=== PATIENT | female | born 1955 | race African-American/Black ===

== ENCOUNTER 2018-04-17 20:00 | Emergency (ER) | payer OTHER, SELFPAY ==
--- NOTE | 2018-04-17 20:56 | RAD REPORT ---
EXAM DESCRIPTION: RAD - Pelvis - 04/17/2018 8:39 pm CLINICAL HISTORY: Slip and fall, pelvic pain COMPARISON: March 2016 TECHNIQUE: AP imaging of the pelvis was obtained. FINDINGS: No fracture of the bony pelvis. No fracture or dislocation of either proximal femur. Degen erative change present at each hip joint slightly worse on the right. Pattern is not substantially di fferent from 2016. SI joints and sacral ala unremarkable. No suspicious soft tissue finding. IMPRESSION: No fracture or acute finding. Right greater than left bilateral hip joint degenerative change.
--- NOTE | 2018-04-17 20:56 | RAD REPORT ---
EXAM DESCRIPTION: RAD - Hip Right 2 View - 04/17/2018 8:39 pm CLINICAL HISTORY: Fall, hip pain COMPARISON: None. FINDINGS: AP and frog-leg views of the right hip were obtained. There is no fracture or dislocation . No acute or destructive bony process seen. Degenerative changes are present along the superior moisés tabular rim. Joint space narrowing is present. AVN is not suspected. IMPRESSION: Hip joint degenerative changes are present as detailed. No fracture or acute finding.
--- NOTE | 2018-04-17 22:00 | EDPHYS ---
Physician Documentation [facility] Name: Heath Lockwood Age: 62 yrs Sex: Female : 1955 Arrival Date: 04/17/2018 Time: 20:01 Bed 18 Private MD: Ilsa Saini ED Physician Oz Antony HPI: 04/17 21:45 This 62 yrs old Black Female presents to ER via Ambulatory with complaints of Fall pm1 Injury, Back Pain. 21:45 Patient is here with a friend who is being treated in the emergency department. Patient pm1 went to the restroom and slipped on the wet floor. Patient stood up with assistance and sat on wheelchair. Patient transferred to the room and was able to stand up and get in bed. Patient complaining of pain in her tailbone and right hip. Patient without any head injury, headache, neck pain, or LOC. No chest pain or shortness of breath. Historical: - Allergies: 20:22 Motrin; bb 20:22 tramadol; bb - Home Meds: 20:22 Trazodone Oral [Active]; [place] 10-325 mg Oral tab 1 tab every 6 hours [Active]; Nexium bb Oral [Active]; Lyrica Oral [Active]; Metoprolol Tartrate Oral [Active]; aspirin 81 mg Oral chew 1 tab once daily [Active]; - PMHx: 20:22 CVA; irregular heartbeat; Myocardial infarction; ovarian cancer; chronic back pain; bb - PSHx: 20:22 back surgery for herniated disc; Hysterectomy; ectopic ; bb - Immunization history:: Adult Immunizations up to date. - Social history:: Smoking status: Patient uses tobacco products, smokes one pack cigarettes per day. Patient uses alcohol, occasionally. Patient/guardian denies using street drugs. - Ebola Screening: : Patient negative for fever greater than or equal to 101.5 degrees Fahrenheit, and additional compatible Ebola Virus Disease symptoms. ROS: 21:45 Constitutional: Negative for fever, chills, and weight loss, Eyes: Negative for injury, pm1 pain, redness, and discharge, ENT: Negative for injury, pain, and discharge, Neck: Negative for injury, pain, and swelling, Cardiovascular: Negative for chest pain, palpitations, and edema, Respiratory: Negative for shortness of breath, cough, wheezing, and pleuritic chest pain, Abdomen/GI: Negative for abdominal pain, nausea, vomiting, diarrhea, and constipation. 21:45 : Negative for injury, bleeding, discharge, and swelling. 21:45 Skin: Negative for injury, rash, and discoloration, Neuro: Negative for headache, weakness, numbness, tingling, and seizure. 21:45 Back: Positive for of the sacrum, pain. 21:45 MS/extremity: Positive for pain, of the right hip, Negative for decreased range of motion, deformity. Exam: 21:45 Constitutional: This is a well developed, well nourished patient who is awake, alert, pm1 and in no acute distress. Head/Face: Normocephalic, atraumatic. Eyes: Pupils equal round and reactive to light, extra-ocular motions intact. Lids and lashes normal. Conjunctiva and sclera are non-icteric and not injected. Cornea within normal limits. Periorbital areas with no swelling, redness, or edema. ENT: Nares patent. No nasal discharge, no septal abnormalities noted. Tympanic membranes are normal and external auditory canals are clear. Oropharynx with no redness, swelling, or masses, exudates, or evidence of obstruction, uvula midline. Mucous membranes moist. Neck: Trachea midline, no thyromegaly or masses palpated, and no cervical lymphadenopathy. Supple, full range of motion without nuchal rigidity, or vertebral point tenderness. No Meningismus. Chest/axilla: Normal chest wall appearance and motion. Nontender with no deformity. No lesions are appreciated. Cardiovascular: Regular rate and rhythm with a normal S1 and S2. No gallops, murmurs, or rubs. Normal PMI, no JVD. No pulse deficits. Respiratory: Lungs have equal breath sounds bilaterally, clear to auscultation and percussion. No rales, rhonchi or wheezes noted. No increased work of breathing, no retractions or nasal flaring. Abdomen/GI: Soft, non-tender, with normal bowel sounds. No distension or tympany. No guarding or rebound. No evidence of tenderness throughout. 21:45 Skin: Warm, dry with normal turgor. Normal color with no rashes, no lesions, and no evidence of cellulitis. 21:45 Back: pain, of the sacrum, normal spinal alignment noted. 21:45 Musculoskeletal/extremity: Extremities: grossly normal except: noted in the right hip: tenderness, There is no evidence of decreased ROM, deformity. Vital Signs: 20:22 BP 123 / 77; Pulse 77; Resp 18 S; Temp 98.2(O); Pulse Ox 97% on R/A; Weight 108.86 kg bb (R); Height 5 ft. 7 in. (170.18 cm) (R); Pain 10/10; 22:00 BP 133 / 69; Pulse 81; Resp 17; Pulse Ox 97% ; rk2 20:22 Body Mass Index 37.59 (108.86 kg, 170.18 cm) bb MDM: 20:13 Patient medically screened. pm1 21:55 Data reviewed: vital signs. Data interpreted: Pulse oximetry: on room air is 97 %. pm1 Interpretation: normal. Counseling: I had a detailed discussion with the patient and/or guardian regarding: the historical points, exam findings, and any diagnostic results supporting the discharge/admit diagnosis, radiology results, the need for outpatient follow up, to return to the emergency department if symptoms worsen or persist or if there are any questions or concerns that arise at home. 22:00 ED course: patient takes [place] 10 mg QID. pm1 22:00 ED course: Patient requested IM narcotics for pain. No fracture on X-rays. Patient pm1 diagnosed with contusions. Will not give narcotics in the ER due to increased risk of falls. Patient with narcotic medications at home already. 04/17 20:17 Order name: Hip Right 2 View XRAY; Complete Time: 21:43 pm1 04/17 20:17 Order name: Pelvis XRAY; Complete Time: 21:43 pm1 Administered Medications: No medications were administered Disposition: 04/18 05:55 Co-signature as Attending Physician, Oz Antony MD I agree with the assessment and tw4 plan of care. Disposition: 04/17/18 22:00 Discharged to Home. Impression: Other slipping, tripping and stumbling and falls, Contusion of right hip. - Condition is Stable. - Discharge Instructions: Contusion, Fall Prevention and Home Safety. - Medication Reconciliation Form, Thank You Letter, Prescription Opioid Use form. - Follow up: Emergency Department; When: As needed; Reason: Worsening of condition. Follow up: Ilsa Saini MD; When: 2 - 3 days; Reason: Recheck today's complaints, Continuance of care, Re-evaluation by your physician. - Problem is new. - Symptoms have improved. Signatures: Dispatcher [employer] EDMS Nneka Ross, RN RN bb Rik Fish, LINEN AIDE LINEN AIDE pm1 Oz Antony MD MD tw4 Sabina Alejandra RN RN rk2 Corrections: (The following items were deleted from the chart) 04/17 22:31 22:00 04/17/2018 22:00 Discharged to Home. Impression: Other slipping, tripping and rk2 stumbling and falls; Contusion of right hip. Condition is Stable. Forms are Medication Reconciliation Form, Thank You Letter, Antibiotic Education, Prescription Opioid Use. Follow up: Emergency Department; When: As needed; Reason: Worsening of condition. Follow up: Ilsa Saini; When: 2 - 3 days; Reason: Recheck today's complaints, Continuance of care, Re-evaluation by your physician. Problem is new. Symptoms have improved. pm1
--- NOTE | 2018-04-17 22:00 | ER ---
Nurse's Notes [facility] Name: Heath Lockwood Age: 62 yrs Sex: Female : 1955 Arrival Date: 04/17/2018 Time: 20:01 Bed 18 Private MD: Ilsa Saini Diagnosis: Other slipping, tripping and stumbling and falls;Contusion of right hip Presentation: 04/17 20:19 Presenting complaint: Patient states: she was in ED with a friend and went to the bathroom then slipped landing on her butt denies LOC, denies hitting her head, was able to get up with assistance, pt was able to transfer on her own from wheelchair to stretcher. Transition of care: patient was not received from another setting of care. Onset of symptoms was April 17, 2018. Risk Assessment: Do you want to hurt yourself or someone else? Patient reports no desire to harm self or others. Initial Sepsis Screen: Does the patient meet any 2 criteria? No. Patient's initial sepsis screen is negative. Does the patient have a suspected source of infection? No. Patient's initial sepsis screen is negative. Care prior to arrival: None. 20:19 Method Of Arrival: Ambulatory 20:19 Acuity: SHEILA 4 Triage Assessment: 20:37 General: Appears uncomfortable. General: Behavior is calm, cooperative. Pain: Complains rk2 of pain in back. Neuro: Level of Consciousness is alert, obeys commands, Oriented to person, place, time, situation. Respiratory: Airway is patent Respiratory effort is even, unlabored, Respiratory pattern is regular, symmetrical. Derm: Skin is pink, warm \T\ dry. Historical: - Allergies: 20:22 Motrin; bb 20:22 tramadol; bb - Home Meds: 20:22 Trazodone Oral [Active]; [place] 10-325 mg Oral tab 1 tab every 6 hours [Active]; Nexium bb Oral [Active]; Lyrica Oral [Active]; Metoprolol Tartrate Oral [Active]; aspirin 81 mg Oral chew 1 tab once daily [Active]; - PMHx: 20:22 CVA; irregular heartbeat; Myocardial infarction; ovarian cancer; chronic back pain; bb - PSHx: 20:22 back surgery for herniated disc; Hysterectomy; ectopic ; bb - Immunization history:: Adult Immunizations up to date. - Social history:: Smoking status: Patient uses tobacco products, smokes one pack cigarettes per day. Patient uses alcohol, occasionally. Patient/guardian denies using street drugs. - Ebola Screening: : Patient negative for fever greater than or equal to 101.5 degrees Fahrenheit, and additional compatible Ebola Virus Disease symptoms. Screenin:37 Abuse screen: Denies threats or abuse. Nutritional screening: No deficits noted. rk2 Tuberculosis screening: No symptoms or risk factors identified. Fall Risk None identified. Assessment: 21:30 Reassessment: Patient appears in no apparent distress at this time. No changes from rk2 previously documented assessment. Patient and/or family updated on plan of care and expected duration. Pain level reassessed. Vital Signs: 20:22 BP 123 / 77; Pulse 77; Resp 18 S; Temp 98.2(O); Pulse Ox 97% on R/A; Weight 108.86 kg bb (R); Height 5 ft. 7 in. (170.18 cm) (R); Pain 10/10; 22:00 BP 133 / 69; Pulse 81; Resp 17; Pulse Ox 97% ; rk2 20:22 Body Mass Index 37.59 (108.86 kg, 170.18 cm) bb ED Course: 20:01 Patient arrived in ED. am2 20:02 Ilsa Saini MD is Private Physician. am2 20:10 Sandra Camacho, MONTSE is Primary Nurse. ea 20:10 Rik Fish NP is PHCP. pm1 20:10 Oz Antony MD is Attending Physician. pm1 20:20 Triage completed. bb 20:22 Arm band placed on Patient placed in an exam room, on a stretcher, on pulse oximetry. bb 20:36 Sabina Alejandra, MONTSE is Primary Nurse. rk2 20:36 Pelvis XRAY Sent. rk2 20:37 Patient has correct armband on for positive identification. Bed in low position. Call rk2 light in reach. 20:37 Hip Right 2 View XRAY Sent. rk2 20:38 Hip Right 2 View XRAY In Process Unspecified. EDMS 20:38 Pelvis XRAY In Process Unspecified. EDMS 21:59 Ilsa Saini MD is Referral Physician. pm1 22:30 No provider procedures requiring assistance completed. Patient did not have IV access rk2 during this emergency room visit. Administered Medications: No medications were administered Outcome: 22:00 Discharge ordered by . pm1 22:31 Discharged to home ambulatory, was offered a wheelchair, pt. declined rk2 22:31 Condition: good 22:31 Discharge instructions given to patient. 22:31 Patient left the ED. rk2 Signatures: Dispatcher [employer] EDMS Nneka Ross RN RN Rik Peters NP [employer] pm1 Zakia Aparicio am2 Sandra Camacho RN RN ea Kidder, Rhonda, RN RN rk2
[2018-04-17 22:37] VITALS: BP 123/77; TEMP 98.2; O2SAT 97
== END 2018-04-17 22:31 | disposition home or self-care (01) ==
LOC: ER 20:00
DX: S70.01XA Contusion of right hip, initial encounter (principal); Z86.73 Personal history of transient ischemic attack (TIA), and cerebral infarction without residual deficits; I25.2 Old myocardial infarction; Z88.6 Allergy status to analgesic agent; Z88.8 Allergy status to other drugs, medicaments and biological substances; F17.210 Nicotine dependence, cigarettes, uncomplicated; W01.198A Fall on same level from slipping, tripping and stumbling with subsequent striking against other object, initial encounter; Y93.89 Activity, other specified; Y92.231 Patient bathroom in hospital as the place of occurrence of the external cause; Y99.9 Unspecified external cause status
CPT/HCPCS: 72170; 99283

== ENCOUNTER 2018-08-25 19:17 | Emergency (ER) | payer SELFPAY ==
--- OUTSIDE RECORDS SUMMARY | 2018-08-25 19:19 | XMS REPORT ---
:1955 Author Organization eClinicalWorks Care Team Providers Name Role Phone Manjitnorbert Ilsa Provider Role Unavailable Allergies, Adverse Reactions, Alerts Substance Reaction Event Type Tramadol HCl Info Not Available Drug Allergy Ibuprofen swelling with her breathing affected Drug Allergy Problems Problem Type Condition Code Onset Dates Condition Status Problem Depression with anxiety F41.8 Active Problem IBS (irritable bowel syndrome) K58.9 Active Problem Edema R60.9 Active Problem Gastroesophageal reflux disease, K21.9 Active esophagitis presence not specified Problem Status post fall Z91.81 Active Problem Chronic pain syndrome G89.4 Active Problem Coronary artery disease involving I25.709 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 Problem Polyarthralgia M25.50 Active Problem Right leg weakness R29.898 Active Problem Insomnia, unspecified type G47.00 Active Assessment Right leg weakness R29.898 Active Assessment Chronic pain syndrome G89.4 Active Assessment Insomnia, unspecified type G47.00 Active Assessment Status post fall Z.81 Active Assessment Coronary artery disease involving I25.709 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 Assessment Polyarthralgia M25.50 Active Problem Cancer C80.1 Active Assessment Gastroesophageal reflux disease, K21.9 Active esophagitis presence not specified Problem Heart disease I51.9 Active Medications Medication Code Code Instructions Start End Status Dosage System Date Date Bactroban [facility] 62472390006 2 % Externally Active 1 application Three times a to affected day x10 days area Nexium ND 06089243058 40 MG Orally Active 1 capsule Once a day Omeprazole ND 32599269545 20 mg Orally Active 1 capsule Once a day amitriptyline ND 14810921958 25 mg po Active one tab bedtime Lyrica ND 56081044496 150 MG Orally Active 1 capsule Three times a day Trazodone HCl ND 87340920787 100 mg Orally Active 1-2 tablets Once a day at bedtime as needed for sleep Aspir-Low ND 82113802347 81 MG Orally Active 1 tablet Once a day Metoprolol [facility] 94836774831 25 mg Orally Active 1 tablet Succinate ER Once a day BusPIRone HCl [facility] 43014860734 7.5 MG Orally Active 1 tablet Twice a day as needed Results No Known Results Summary Purpose eClinicalWorks Submission
[2018-08-25] MEDS ORDERED: NA CHLORIDE 0.9% 500 ML ONE (21:33)
[2018-08-25 22:10] LABS: Absolute Lymphocytes (CBC) 2.5 K/uL (0.7-4.9); Absolute Monocytes 0.7 K/uL (0.1-1.3); Absolute Neutrophil 2.1 K/uL (1.8-8.0); Basophils % 0.9 % (0-1.3); Eosinophils % 3.6 % (0-4.4); Hematocrit 35.9 % (36.0-45.0); MCH 30.4 pg (27.0-35.0); MPV 10.5 fL (7.6-11.3); Monocytes % 12.7 % (3.3-12.3); RBC Red Blood Cell Count 4.08 M/uL (3.86-4.86)
[2018-08-25 22:11] LABS: Protime INR 0.95
[2018-08-25 22:22] LABS: ALT/SGPT 17 U/L (12-78); AST/SGOT 11 U/L (15-37); Albumin 3.1 g/dL (3.4-5.0); Alkaline Phosphatase 80 U/L (45-117); BUN Blood Urea Nitrogen 11 mg/dL (7-18); Bicarbonate 29 mmol/L (21-32); Bilirubin Direct 0.1 mg/dL (0-0.2); Bilirubin Total 0.2 mg/dL (0.2-1.0); Glucose Level 120 mg/dL (74-106); Lipase 285 U/L (73-393); Magnesium 2.3 mg/dL (1.8-2.4); Potassium 3.8 mmol/L (3.5-5.1); Protein, Total 6.1 g/dL (6.4-8.2); Sodium Level 144 mmol/L (136-145); Troponin (Emerg Dept Use Only) < 0.02 ng/mL (0.0-0.045)
[2018-08-25] MEDS ORDERED: FENTANYL CITR 100 MCG/2 ML ONE (22:22)
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
[2018-08-26 01:23] VITALS: TEMP 98.9
[2018-08-26 01:27] VITALS: BP 132/64; O2SAT 100
[2018-08-26 01:55] LABS: Urine Blood TRACE (NEG); Urine Glucose NEGATIVE (NEG); Urine Protein NEGATIVE (NEG)
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
--- NOTE | 2018-08-26 07:34 | EKG ---
Test Date: 2018-08-25 Test Time: 23:02:27 Grant Specialist: TL MEASUREMENT RESULTS: Intervals: Rate: 62 CT: 188 QRSD: 78 QT: 388 QTc: 393 [place]: P: 69 CT: 188 QRS: 30 T: 62 INTERPRETIVE STATEMENTS: Normal sinus rhythm Normal ECG Compared to ECG 09/03/2016 15:36:10 No significant changes Electronically Signed On 08-26-18 07:33:15 CDT by Jose E Navarro
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
== END 2018-08-26 01:16 | disposition home or self-care (01) ==
LOC: ER 19:17
DX: S16.1XXA Strain of muscle, fascia and tendon at neck level, initial encounter (principal); R10.819 Abdominal tenderness, unspecified site; V49.9XXA Car occupant (driver) (passenger) injured in unspecified traffic accident, initial encounter; F17.210 Nicotine dependence, cigarettes, uncomplicated; Z79.82 Long term (current) use of aspirin; I25.2 Old myocardial infarction; Z85.43 Personal history of malignant neoplasm of ovary; Z88.5 Allergy status to narcotic agent; Z88.6 Allergy status to analgesic agent
CPT/HCPCS: 36415; 70450; 71045; 71260; 72125; 74177; 80048; 80076; 81003; 83690; 83735; 83880; 84484; 85025; 85610; 87086; 87088; 93005; 96361; 96374; 99284; J3010; Q9967

== ENCOUNTER 2020-07-31 17:27 | Emergency (ER) | payer SELFPAY ==
--- OUTSIDE RECORDS SUMMARY | 2020-07-31 17:29 | XMS REPORT | Continuity of Care Document ---
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) l [facility] ent [facility] Edema Edema Problem Active [facility] Gastroesop Gastroesop Problem Active [facility] hageal hageal [facility] - reflux reflux Memoria disease, disease, l esophagiti esophagiti Ou tpati s presence s presence en t not not Clinics specified specified Status Status Problem Active [facility] post fall post fall [facility] - [facility] Chronic Chronic Problem Active [facility] pain pain [facility] - syndrome syndrome Memori a l [facility] Coronary Coronary Diagnosis Active [facility] artery artery [facility] - disease disease Memoria involving involving l coronary coronary Outpat i bypass bypass ent graft of graft of [facility] [place] with heart with angina angina pectoris pectoris Polyarthra Polyarthra Problem Active [facility] lgia lgia [facility] Right leg Right leg Problem Active [facility] weakness weakness [facility] Insomnia, Insomnia, Diagnosis Active [facility] unspecifie unspecifie Mikaela kes - d type d type Memoria [facility] Clinics Cancer Cancer Problem Active [facility] Heart Heart Problem Active [facility] disease disease [facility] Allergies, Adverse Reactions, Alerts Allergy Allergy Status Severity Reaction(s) Onset Inactive Treating Comm ents Source Name Type Date Date Clinician Tramadol Adverse Active Info Not [facility] HCl Reaction Available [facility] Ibuprofe Adverse Active swelling [facility] Reaction with her [facility] - breathing [facility]oria affected l [facility] Medications Ordered Filled Start Stop Current Ordering Indication Dosage Frequency Signature Comments Components Source Medication Medication Date Date Medication? Clinician (SIG) Name Name Trazodone Trazodone Yes Ilsa 1-[address] [facility] HCl HCl Millender tablets at [facility] - bedtime as [facility]oria needed for l sleep [facility] Metoprolol Metoprolol Yes Ilsa [address] [facility] Succinate Succinate Millender [facility] - ER ER [facility] l [facility] Procedures This patient has no known procedures. Encounters Start End Encounter Admission Attending Care Care Encounter Source Date/Time Date/Time Type Type Clinicians Facility Department ID 2020-02-03 2020-02-03 [facility] [id number] [facility] 08:59:00 08:59:00 [facility] 2019-07-28 2019-07-28 [facility] [id number] [facility] 13:00:00 13:00:00 [facility] Medicine Outpati ent Clinics 2019-06-16 2019-06-16 [facility] [id number] [facility] 16:59:00 16:59:00 [facility] 2019-06-10 2019-06-10 [facility] [id number] [facility] 11:50:00 11:50:00 [facility] Medicine Outpati ent Clinics 2018-05-09 2018-05-09 [facility] [id number] [facility] 09:00:00 09:00:00 [facility] Results This patient has no known results.
[2020-07-31] MEDS ORDERED: HYDROCODONE/APAP 10/325 TAB ONE (18:20)
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
[2020-07-31 19:59] VITALS: BP 118/68; O2SAT 99
== END 2020-07-31 19:53 | disposition home or self-care (01) ==
LOC: ER 17:27
DX: R07.81 Pleurodynia (principal); M25.551 Pain in right hip; V49.59XA Passenger injured in collision with other motor vehicles in traffic accident, initial encounter; F17.210 Nicotine dependence, cigarettes, uncomplicated; Z79.82 Long term (current) use of aspirin; Z85.42 Personal history of malignant neoplasm of other parts of uterus; Z88.5 Allergy status to narcotic agent; Z88.6 Allergy status to analgesic agent
CPT/HCPCS: 70450; 71250; 72125; 99284

== ENCOUNTER 2024-02-18 04:26 | Emergency (ER) | payer OTHER, SELFPAY ==
--- OUTSIDE RECORDS SUMMARY | 2024-02-18 04:30 | XMS REPORT | Continuity of Care Document ---
Author Name Unknown Address [address] [facility]. [address] [place] [address] [facility] thconnect Address [address] [facility] [address]. [address] [place] [address] Care Team Providers Care Crm Marketing Executive Name Role Phone Aracelis Mark Attending Clinician Unavailable Sariah Cody Attending Clinician Unavailable Erica Zeng Attending Clinician Unavailable CHARLIE MCKEON Attending Clinician Unavailable THEODORE GUTIERREZ Attending Clinician Unav ailable LAB90 Attending Clinician Unavailable NORRIS MELENDREZ Attending Clinician Unavail able MARI HERNANDEZ Attending Clinician Unavailable DARVIN Attending Clinician Unavailable Payers Payer Name Policy Type Policy Number Effective Date Expirati on Date Source [place] [facility] [id number] 00:00:00 FORMERLY [facility] (MEDICARE REPLACEMENT HMO) [id number] 00:00:00 Problems Condition Name Condition Details Condition Category Status Onset Date Resolution Date Last Treatment Date Treating Clinician Comments Source Prediabete s Prediabete s Disease Active 2022-11 0- 00:00: 00 Kathy massey Well adult exam Well adult exam Disease Active 08-15 00:00: 00 Kathy massey History of uterine cancer History of uterine cancer Disease Active 08-15 00:00: 00 Kathy massey Chronic back pain Chronic back pain Disease Active 08-15 00:00: 00 Kathy massey GERD (gastroeso phageal reflux disease) GERD (gastroeso phageal reflux disease) Disease Active 08-15 00:00: 00 Kathy massey History of colon polyps History of colon polyps Disease Active 08-15 00:00: 00 Kathy Thompsona l Family history of colon cancer in father Family history of colon cancer in father Disease Active 08-15 00:00: 00 Kathy Thompsona bryson HTN (hypertens ion) HTN (hypertens ion) Disease Active 08-15 00:00: 00 Kathy Thompsona bryson Tobacco use Tobacco use Disease Active 08-15 00:00: 00 Kathy Thompsona bryson CAD (coronary artery disease) CAD (coronary artery disease) Disease Active 08-15 00:00: 00 Overview: Formattin g of this note might be different from the original. 2006 Kathy massey History of WA (myocardia l infarction ) History of WA (myocardia l infarction ) Disease Active 11-18 00:00: 00 Kathy massey History of CVA (cerebrova scular accident) History of CVA (cerebrova scular accident) Disease Active 11-18 00:00: 00 Kathy Thompsona bryson Edema Edema Problem Active [facility] Irritable bowel syndrome IBS (irritable bowel syndrome) Problem Active [facility] [id number] Polyarthra lgia Problem Active [facility] Cancer Cancer Problem Active [facility] Mixed anxiety and depressive disorder Depression with anxiety Problem Active [facility] [id number] Chronic pain syndrome Problem Active [facility] Heart disease Heart disease Problem Active [facility] [id number] Coronary artery disease involving coronary bypass graft of [place] heart with angina pectoris Problem Active [facility] [id number] Insomnia, unspecifie d type Problem Active [facility] [id number] Right leg weakness Problem Active [facility] [id number] Status post fall Problem Active [facility] Allergies, Adverse Reactions, Alerts Allergy Name Allergy Type Status Severity Reaction(s) Onset Date Inactive Date Treating Clinician Comments Source Ibuprofe n Propensi ty to adverse reaction s Active Swelling 07-18 00:00: 00 Kathy De La Torre - Externa l Tramadol Propensi ty to adverse reaction s Active Other 07-18 00:00: 00 Kathy La Externa l ibuprofe n ibuprofe n Active swelling with her breathing affected [facility] tramadol tramadol Active Unknown Commo n [facility] Social History Social Habit Start Date Stop Date Quantity Comments Source History of tobacco use Cigarette Smoker Kathy drake - External Sexual orientation Marilin De La Torre - External Alcohol intake 2023-09-17 00:00:00 2023-09-17 00:00:00 Current drinker of alcohol (finding) Kathy De La Torre - External Cigarettes smoked current (pack per day) - Reported 2023-08-15 00:00:00 2023-08-15 00:00:00 Kathy De La Torre - External Cigarette pack-years 2023-08-15 00:00:00 2023-08-15 00:00:00 Kathy De La Torre - External Tobacco use and exposure 2023-08-15 00:00:00 2023-08-15 00:00:00 Smokeless tobacco non-user Kathy De La Torre - External History of Social function 2023-08-15 00:00:00 2023-08-15 00:00:00 Kathy De La Torre - External Education 2023-08-15 00:00:00 2023-08-15 00:00:00 13 Kathy De La Torre - External Alcohol Comment 2023-08-15 00:00:00 2023-08-15 00:00:00 moderately Kathy De La Torre - External Sex Assigned At 1955 00:00:00 1955 00:00:00 Kathy De La Torre - External Smoking Status Start Date Stop Date Source Smokes tobacco daily 2023-08-15 00:00:00 Kathy De La Torre - External Medications Ordered Medication Name Filled Medication Name Start Date Stop Date Current Medication? Ordering Clinician Indication Dosage Frequency Signature (SIG) Comments Components Source MILK THISTLE OR 2022-11 10:22: 01 Yes Take by mouth. Kathy massey Ascorbic Acid (VITAMIN C OR) 2022-11 10:22: 01 Yes Take by mouth. Kathy massey Cyanocobala min (VITAMIN B 12 OR) 2022-11 10:22: 01 Yes Take by mouth. Kathy massey Aspirin 81 MG oral Tablet Delayed Response 2022-11 10:22: 01 Yes 81mg Take 1 tablet (81 mg total) by mouth daily. Kathy massey Atorvastati n Calcium (Lipitor) 10 MG oral Tablet 2022-11 00:00: 00 Yes [id number] 10mg Take 1 tablet (10 mg total) by mouth nightly. Kathy massey Metoprolol Succinate 25 MG oral TABLET SR 24 HR 08-15 10:33: 18 08-15 00:00 :00 No 25mg Take 1 tablet (25 mg total) by mouth daily. Kathy massey Trazodone HCl 100 MG oral Tablet 08-15 10:33: 18 08-15 00:00 :00 No 100mg Take 1 tablet (100 mg total) by mouth nightly. Kathy massey MILK THISTLE OR 08-15 10:00: 38 Yes Take by mouth. Kathy massey Ascorbic Acid (VITAMIN C OR) 08-15 10:00: 38 Yes Take by mouth. Kathy massey Cyanocobala min (VITAMIN B 12 OR) 08-15 10:00: 38 Yes Take by mouth. Kathy massey Aspirin 81 MG oral Tablet Delayed Response 08-15 10:00: 38 Yes 81mg Take 1 tablet (81 mg total) by mouth daily. Kathy massey Trazodone HCl 100 MG oral Tablet 08-15 00:00: 00 Yes [id number] 100mg Take 1 tablet (100 mg total) by mouth nightly. Kathy Mongeriaznoelle La Jaymargarita massey Metoprolol Succinate 25 MG oral TABLET SR 24 HR 08-15 00:00: 00 Yes [id number] 25mg Take 1 tablet (25 mg total) by mouth daily. Kathy Mongeamanda Bessie Sulaiman bryson Trazodone HCl 100 MG oral Tablet 08-15 00:00: 00 Yes [id number] 100mg Take 1 tablet (100 mg total) by mouth nightly. Kathy Mongeamanda Bessie Jaymargarita massey Metoprolol Succinate 25 MG oral TABLET SR 24 HR 08-15 00:00: 00 Yes [id number] 25mg Take 1 tablet (25 mg total) by mouth daily. Kathy Mongeriaznoelle La Sulaiman bryson Gabapentin 300 MG Gabapentin 300 MG 07-28 00:00: 00 No 1{capsu le} Gabapentin 300 MG Gabapentin 300 MG Gabapentin 300 MG 07-28 00:00: 00 No 1{capsu le} Gabapentin 300 MG Trazodone HCl Trazodone HCl Yes Ilsa Millender 1-2 tablets at bedtime as needed for sleep [facility] Metoprolol Succinate ER Metoprolol Succinate ER Yes Ilsa Millender 1 tablet [facility] Lyrica 150 MG Lyrica 150 MG No 1{capsu le} TID Lyrica 150 MG BusPIRone HCl 7.5 MG BusPIRone HCl 7.5 MG No 1{table t} BusPIRone HCl 7.5 MG Bactroban 2 % Bactroban 2 % No 1{appli cation_ to_affe cted_ar ea} Bactroban 2 % Metoprolol Succinate ER 25 mg Metoprolol Succinate ER 25 mg No 1{table t} QD Metoprolol Succinate ER 25 mg Aspir-Low 81 MG Aspir-Low 81 MG No 1{table t} QD Aspir-Low 81 MG Trazodone HCl 100 mg Trazodone HCl 100 mg No QD Trazodone HCl 100 mg Nexium 40 MG Nexium 40 MG No 1{capsu le} QD Nexium 40 MG Omeprazole 20 mg Omeprazole 20 mg No 1{capsu le} QD Omeprazole 20 mg amitriptyli ne 25 mg amitriptyli ne 25 mg No amitriptyl ine 25 mg BusPIRone HCl 7.5 MG BusPIRone HCl 7.5 MG No 1{table t} BusPIRone HCl 7.5 MG Trazodone HCl 100 mg Trazodone HCl 100 mg No QD Trazodone HCl 100 mg amitriptyli ne 25 mg amitriptyli ne 25 mg No amitriptyl ine 25 mg Bactroban 2 % Bactroban 2 % No 1{appli cation_ to_affe cted_ar ea} Bactroban 2 % Lyrica 150 MG Lyrica 150 MG No 1{capsu le} TID Lyrica 150 MG Metoprolol Succinate ER 25 mg Metoprolol Succinate ER 25 mg No 1{table t} QD Metoprolol Succinate ER 25 mg Nexium 40 MG Nexium 40 MG No 1{capsu le} QD Nexium 40 MG Omeprazole 20 mg Omeprazole 20 mg No 1{capsu le} QD Omeprazole 20 mg Aspir-Low 81 MG Aspir-Low 81 MG No 1{table t} QD Aspir-Low 81 MG Vital Signs Vital Name Observation Time Observation Value Comments S ource Systolic blood pressure 2023-09-17 15:20:00 129 mm[Hg] Kathymigdalia Goddardo ld - External Diastolic blood pressure 2023-09-17 15:20:00 67 mm[Hg] Kathymigdalia Goddardo ld - External Heart rate 2023-09-17 15:20:00 89 /min Kel y ybold - External Body temperature 2023-09-17 15:20:00 36.56 Robyn Kathy De La Torre - External Respiratory rate 2023-09-17 15:20:00 15 /min Kathy De La Torre - External Body height 2023-09-17 15:20:00 170.2 cm Melissa ey Seybold - External Body weight 2023-09-17 15:20:00 81.375 kg Melissa ey ybold - External BMI 2023-09-17 15:20:00 28.10 kg/m2 Melissa white amanda - External Oxygen saturation in Arterial blood by Pulse oximetry 2023-09-17 15:20:00 99 /min Kathy lyn ld - External Systolic blood pressure 2023-08-15 14:56:00 131 mm[Hg] Kathy alvarado - External Diastolic blood pressure 2023-08-15 14:56:00 77 mm[Hg] Kathy alvarado - External Heart rate 2023-08-15 14:56:00 95 /min Kenyon De La Torre - External Body temperature 2023-08-15 14:56:00 37.06 Robyn Kathy De La Torre - External Respiratory rate 2023-08-15 14:56:00 20 /min Kathy De La Torre - External Body weight 2023-08-15 14:56:00 83.553 kg Melissa De La Torre - External Oxygen saturation in Arterial blood by Pulse oximetry 2023-08-15 14:56:00 99 /min Kathy Goddardjoalnta christiano - External Encounters Start Date/Time End Date/Time Encounter Type Admission Type Attending [facility] Care Department Encounter ID Source 2022-11-23 12:45:00 Outpatient Aracelis Mark STLC STLC [id number] [facility] 2022-11-06 16:26:00 Outpatient STLMLC STLC [id number] [facility] 2021-12-13 14:30:22 Outpatient STLMLC STLMLC [id number] [facility] 2021-12-13 14:06:26 Outpatient Aracelis Mark STLMLC STLC [id number] [facility] 2021-12-13 14:06:22 Outpatient Sariah Cody STLMLC STLMLC [id number] [facility] 2021-12-13 12:22:41 Outpatient [place] RidgeSariah xiao STLC STLMLC [id number] [facility] 2021-12-13 12:04:11 Outpatient Karri Erica STLC STLC [id number] [facility] 2021-12-13 12:02:19 Outpatient Erica Zeng STLC STLC [id number] [facility] 2024-02-19 10:00:00 2024-02-19 10:00:00 Outpatient PREZAS, CHARLIE KATHY MEANS [id number] Kathy Mongenoelle 2024-02-12 00:00:00 2024-02-12 00:00:00 Outpatient PREZAS, CHARLIE KATHY MEANS [id number] Kathy Mongenoelle 2023-12-18 10:45:00 2023-12-18 10:45:00 Outpatient PREZAS, CHARLIE KATHY MEANS [id number] [facility] 2023-11-19 09:40:00 2023-11-19 09:40:00 Outpatient MATTTHEODORE KATHY MEANS [id number] Kathy [facility] 2023-11-19 00:00:00 2023-11-19 00:00:00 Outpatient MATT, THEODORE MEANS [id number] Kathy [facility] 2023-10-15 00:00:00 2023-10-15 00:00:00 Outpatient PREZAS, CHARLIE KATHY MEANS [id number] Kathy [facility] 2023-09-17 10:00:00 2023-09-17 10:00:00 Outpatient PREZAS, CHARLIE KATHY MEANS [id number] Kathy [facility] 2023-09-13 00:00:00 2023-09-13 00:00:00 Outpatient PREZAS, CHARLIEMAUREEN MEANS [id number] Kathy [facility] 2023-09-11 10:30:00 2023-09-11 10:30:00 Outpatient PREZAS, CHARLIE KATHY MEANS [id number] Kathy [facility] 2023-09-03 00:00:00 2023-09-03 00:00:00 Outpatient PREZAS, CHARLIE MEANS [id number] Kathy [facility] 2023-09-03 00:00:00 2023-09-03 00:00:00 Outpatient PREZAS, CHARLIE MEANS [id number] [facility] 2023-09-02 08:00:00 2023-09-02 08:00:00 Outpatient LAB90 [facility] MEANS [id number] [facility]23-08-26 00:00:00 2023-08-26 00:00:00 Outpatient NORRIS MELENDREZ KATHY MEANS [id number] [facility] 2023-08-25 00:00:00 2023-08-25 00:00:00 Outpatient PREZACHARLIE Easley KATHY MEANS [id number] [facility] 2023-08-22 00:00:00 2023-08-22 00:00:00 Outpatient MARI HERNANDEZ KATHY MEANS [id number] [facility] 2023-08-16 00:00:00 2023-08-16 00:00:00 Outpatient GIOZIEL KATHY MEANS [id number] [facility] 2023-08-15 10:15:00 2023-08-15 10:15:00 Outpatient PREZACHARLIE Easley KATHY MEANS [id number] [facility] 2023-07-17 10:30:00 2023-07-17 10:30:00 Outpatient PREZAS, CHARLIE KATHY MEANS [id number] [facility] 2023-07-05 00:00:00 2023-07-05 00:00:00 Outpatient PREZAS, CHARLIE KATHY MEANS [id number] [facility] 2023-07-01 00:00:00 2023-07-01 00:00:00 Outpatient PREZASCHARLIE KATHY MEANS [id number] [facility] 2023-05-30 10:00:00 2023-05-30 10:00:00 Outpatient PREZASCHARLIE KATHY MEANS [id number] [facility] 2022-10-24 00:00:00 2022-10-24 00:00:00 Outpatient DMG DMG [id number] [facility] 2020-12-06 00:00:00 2020-12-06 [id number] 2020-08-30 00:00:00 2020-08-30 00:00:00 [facility] [id number] [facility] 2020-02-03 08:59:00 2020-02-03 08:59:00 [facility] [id number] [facility] 2019-07-28 13:00:00 2019-07-28 13:00:00 [facility] [id number] [facility] 2019-06-16 16:59:00 2019-06-16 16:59:00 [facility] [id number] [facility] 2019-06-10 11:50:00 2019-06-10 11:50:00 [facility] [id number] [facility] 2018-05-09 09:00:00 2018-05-09 09:00:00 [facility] [id number] [facility]
[2024-02-18] MEDS ORDERED: ONDANSETRON 4 MG/2 ML VIAL ONE (04:49)
[2024-02-18] MEDS ORDERED: KETOROLAC 30 MG/ML INJ ONE (04:49)
[2024-02-18] MEDS ORDERED: HALOPERIDOL LACT 5 MG/ML INJ ONE (04:49)
[2024-02-18] MEDS ORDERED: FAMOTIDINE 20 MG/2 ML VIAL IV ONE (04:50)
[2024-02-18] MEDS ORDERED: MORPHINE 4 MG/ML SYR ONE (04:50)
[2024-02-18] MEDS ORDERED: NA CHLORIDE 0.9% 1,000 ML ONE (04:50)
[2024-02-18 05:17] LABS: Albumin 3.4 g/dL (3.4-5.0); Albumin/Globulin Ratio 1.1 (1.1-1.8); Anion Gap 6.7 mEq/L (5.0-15.0); Bilirubin Total 0.4 mg/dL (0.2-1.0); C-Reactive Protein 2.93 mg/L (<3.00); Globulin 3.2 g/dL (2.3-3.5); Potassium 3.7 mEq/L (3.5-5.1); Protein, Total 6.6 g/dL (6.4-8.2)
[2024-02-18 05:18] LABS: Absolute Basophils 0.1 K/uL (0-0.5); Absolute Eosinophils 0.1 K/uL (0-0.5); Absolute Lymphocytes (CBC) 3.2 K/uL (0.7-4.9); Absolute Monocytes 0.6 K/uL (0.1-1.3); Absolute Neutrophil 3.3 K/uL (1.8-8.0); Basophils % 0.9 % (0-1.3); Eosinophils % 2.1 % (0-4.4); Hematocrit 37.1 % (36.0-45.0); Hemoglobin 12.6 g/dL (12.0-15.0); MCH 30.3 pg (27.0-35.0); MCHC 34.1 g/dL (32.0-36.0); MPV 10.1 fL (7.6-11.3); Monocytes % 7.7 % (3.3-12.3); Neutrophils % 45.3 % (41.7-73.7); Nucleated Red Blood Cells % 0.1 % (0-0); Platelets 207 thou/uL (152-406); RBC Red Blood Cell Count 4.17 M/uL (3.86-4.86); Red Cell Distribution Width 13.5 % (12.1-15.2)
--- NOTE | 2024-02-18 07:02 | RAD REPORT ---
EXAM DESCRIPTION: CTAbdomen Pelvis W Contrast - 02/18/2024 5:56 am CLINICAL HISTORY: ABD PAIN COMPARISON: Head C Spine Cap W Con dated 08/25/2018 TECHNIQUE: CT of the abdomen and pelvis was performed with IV contrast. All CT scans are performed using dose optimization technique as appropriate and may include automated exposure control or mA/KV adjustment according to patient size. FINDINGS: Lower chest: No acute abnormality. Liver: Low-density lesion in the hepatic dome has benign imaging features and is unchanged since 2018 . . Biliary: No biliary ductal dilatation. Stomach: No significant focal abnormality. Duodenum: No significant focal abnormality. Pancreas: No significant abnormality. Spleen: No significant abnormality. Adrenal: No suspicious lesions. Kidney/ureter: No hydronephrosis. No renal calculi. Retroperitoneum: No retroperitoneal adenopathy. Vascular: No aneurysm. Bowel: Diverticulosis without diverticulitis. Normal appendix. Peritoneum: No ascites or free air.Small fat containing umbilical hernia. Bladder: Grossly unremarkable. Reproductive: No adnexal masses. Bones: No acute fracture. Moderate degenerative changes are present at the right hip. Other: n/a IMPRESSION: No acute intra-abdominal or pelvic finding.
--- NOTE | 2024-02-18 07:10 | ER ---
Nurse's Notes [facility] Name: Heath Lockwood Age: 68 yrs Sex: Female : 1955 Arrival Date: 02/18/2024 Time: 04:26 Bed 6 Private MD: Diagnosis: Flank Pain Presentation: 02/17 04:32 Chief complaint: Patient states: right upper abdominal pain X1 day. denies N/V/D. lg3 Coronavirus screen: Client denies travel out of the [place] in the last 14 days. At this time, the client does not indicate any symptoms associated with coronavirus-19. Ebola Screen: No symptoms or risks identified at this time. Initial Sepsis Screen: Does the patient meet any 2 criteria? No. Patient's initial sepsis screen is negative. Does the patient have a suspected source of infection? No. Patient's initial sepsis screen is negative. Risk Assessment: Do you want to hurt yourself or someone else? Patient reports no desire to harm self or others. Onset of symptoms was February 17, 2024. 04:32 Method Of Arrival: EMS: [facility] lg3 04:32 Acuity: SHEILA 3 lg3 Triage Assessment: 04:35 General: Appears in no apparent distress. uncomfortable, Behavior is calm, cooperative. lg3 Pain: Complains of pain in right upper quadrant Pain does not radiate. EENT: No deficits noted. No signs and/or symptoms were reported regarding the EENT system. Neuro: No deficits noted. Nelson Agitation-Sedation Scale (RASS): 0 - Alert and Calm Level of Consciousness is awake, alert, obeys commands, Oriented to person, place, time, situation. Cardiovascular: No deficits noted. Denies chest pain, shortness of breath, Capillary refill < 3 seconds Clubbing of nail beds is absent JVD is absent Patient's skin is warm and dry. Respiratory: No deficits noted. Airway is patent Respiratory effort is even, unlabored, Respiratory pattern is regular, symmetrical. GI: Abdomen is round non-distended, obese, Reports upper abdominal pain, Patient currently denies constipation, diarrhea, nausea. : No deficits noted. No signs and/or symptoms were reported regarding the genitourinary system. Derm: No deficits noted. No signs and/or symptoms reported regarding the dermatologic system. Skin is intact, is healthy with good turgor, Skin is dry, Skin is normal, Skin temperature is warm. Musculoskeletal: No deficits noted. No signs and/or symptoms reported regarding the musculoskeletal system. Circulation, motion, and sensation intact. Range of motion: intact in all extremities. Historical: - Allergies: 04:35 Motrin; lg3 04:35 tramadol; lg3 04:35 Ibuprofen; lg3 - PMHx: 04:35 chronic back pain; CVA; irregular heartbeat; Myocardial infarction; ovarian cancer; lg3 uterine cancer; - PSHx: 04:35 Total abdominal hysterectomy; lg3 - Immunization history:: Adult Immunizations up to date, Client reports receiving the 2nd dose of the Covid vaccine, Flu vaccine is not up to date. - Infectious Disease History:: Denies. - Social history:: Smoking status: Patient reports the use of cigarette tobacco products, smokes one pack cigarettes per day. Patient uses alcohol, only on a social basis. street drugs, cocaine, marijuana. - Family history:: not pertinent. Screenin:37 [facility] ED Fall Risk Assessment (Adult) History of falling in the last 3 months, lg3 including since admission No falls in past 3 months (0 pts). Abuse screen: Denies threats or abuse. Denies injuries from another. Nutritional screening: No deficits noted. Tuberculosis screening: No symptoms or risk factors identified. Assessment: 05:00 General: Appears in no apparent distress. uncomfortable, Behavior is cooperative, jj7 appropriate for age, anxious. Pain: Complains of pain in right upper quadrant. GI: Patient currently denies diarrhea, nausea, vomiting. Vital Signs: 04:32 BP 148 / 88; Pulse 73; Resp 17 S; Temp 98.3(O); Pulse Ox 100% on R/A; Weight 95 kg (M); lg3 Height 5 ft. 7 in. (R); Pain 10/10; 05:30 BP 113 / 58; Pulse 72; Resp 17; Pulse Ox 97% ; vc1 06:22 BP 136 / 67; Pulse 74; Resp 17; Pulse Ox 100% ; jj7 07:10 BP 124 / 74; Pulse 72; Resp 14; Pulse Ox 100% ; ko1 04:32 Body Mass Index 32.80 (95.00 kg, 170.18 cm) lg3 04:32 Pain Scale: Adult lg3 [place] Coma Score: 04:40 Eye Response: spontaneous(4). Motor Response: obeys commands(6). Verbal Response: sp4 oriented(5). Total: 15. ED Course: 04:32 Patient arrived in ED. lg3 04:33 Isrrael Bhakta MD is Attending Physician. sp4 04:35 Triage completed. lg3 04:35 Arm band placed on left wrist. lg3 04:37 Patient has correct armband on for positive identification. Placed in gown. Bed in low lg3 position. Call light in reach. Side rails up X 1. Client placed on continuous cardiac and pulse oximetry monitoring. NIBP monitoring applied. Door closed. Noise minimized. Warm blanket given. Family accompanied patient. 04:37 Maintain EMS IV. Dressing intact. Good blood return noted. Site clean \T\ dry. Gauge \T\ lg 3 site: 20 RAC. 04:37 Patient maintains SpO2 saturation greater than 95% on room air. lg3 04:49 CBC with Diff Sent. kmf 04:49 CMP Sent. kmf 04:50 Cleaned of incontinence. kmf 04:50 Initial lab(s) drawn, by ca, sent to lab. kmf 05:06 Alcohol Level Sent. jj7 05:06 CBC with Diff Sent. jj7 05:06 CMP Sent. jj7 05:06 Lipase Sent. jj7 05:58 CT Abd/Pelvis - IV Contrast Only In Process Unspecified. EDMS 07:08 Attending Physician role handed off by Isrrael Bhakta MD ec2 07:08 Hardik Perea MD is Attending Physician. ec2 07:10 Tessa Dorsey, MONTSE is Primary Nurse. ko1 07:10 Provided Education on: NA. ko1 07:10 No provider procedures requiring assistance completed. IV discontinued, intact, ko1 bleeding controlled, No redness/swelling at site. Pressure dressing applied. 07:10 Urine collected: clean catch specimen, clear. ko1 07:10 Legal drug screen obtained per protocol. ko1 07:12 Urinalysis w/ reflexes Sent. ko1 07:12 Urine Drug Screen Sent. ko1 07:46 Eliceo Andujar MD is Referral Physician. ec2 Administered Medications: 05:07 Drug: NS 0.9% IV 1000 ml IV at 1 bolus Per protocol; 1000 mL bolus Route: IV; Rate: 1 jj7 bolus; Site: right antecubital; 07:55 Follow up: Response: No adverse reaction; IV Status: Completed infusion; IV Intake: ko1 1000ml 05:07 Drug: Famotidine IVP 20 mg IVP once; dilute with 10 mL 0.9% NaCl; give over 2 minutes jj7 Route: IVP; Site: right antecubital; 07:55 Follow up: Response: No adverse reaction ko1 05:07 Drug: TORadol - Ketorolac IVP 30 mg IVP once Route: IVP; Site: right antecubital; jj7 07:55 Follow up: Response: No adverse reaction ko1 05:07 Drug: Ondansetron IVP 4 mg IVP once; over 2 minutes Route: IVP; Site: right antecubital;jj7 07:55 Follow up: Response: No adverse reaction ko1 05:08 Drug: morphine IVP or IV 4 mg IVP once over 4 mins Route: IVP; Infused Over: 4 mins; jj7 Site: right antecubital; 07:56 Follow up: Response: No adverse reaction ko1 05:08 Drug: Haloperidol IVP 5 mg IVP once {Note: CLARIFIED WITH DR MONTELONGO MED CAN BE GIVEN jj7 IVP.} Route: IVP; Site: right antecubital; 07:54 Follow up: Response: No adverse reaction ko1 Medication: 05:00 VIS not applicable for this client. jj7 Intake: 07:55 IV: 1000ml; Total: 1000ml. ko1 Outcome: 07:09 Discharge ordered by . ec2 07:46 Discharge ordered by . ec2 07:53 Discharged to home ambulatory, with family, ko1 07:53 Condition: improved 07:53 Discharge instructions given to patient, Instructed on discharge instructions, follow up and referral plans. Demonstrated understanding of instructions, follow-up care, 07:54 Patient left the ED. ko1 Signatures: Dispatcher [employer] EDMS Cynthia Gerardo RN RN lg3 Nedra Zhu RN RN vc1 Tessa Dorsey RN RN ko1 Emir Javed RN RN jj7 Isrrael Bhakta MD MD sp4 Hardik Perea MD MD ecKathy [facility]
--- NOTE | 2024-02-18 07:10 | EDPHYS ---
Physician Documentation [facility] Name: Heath Lockwood Age: 68 yrs Sex: Female : 1955 Arrival Date: 02/18/2024 Time: 04:26 Bed 6 Private MD: ED Physician Hardik Perea HPI: 02/17 04:36 This 68 yrs old Black Female presents to ER via EMS with complaints of Right flank pain sp4 . 04:36 68-year-old female presents with acute onset right abdominal pain right flank pain. sp4 Patient presents with EMS. Patient reports drug abuse marijuana and crack cocaine. . Historical: - Allergies: 04:35 Motrin; lg3 04:35 tramadol; lg3 04:35 Ibuprofen; lg3 - PMHx: 04:35 chronic back pain; CVA; irregular heartbeat; Myocardial infarction; ovarian cancer; lg3 uterine cancer; - PSHx: 04:35 Total abdominal hysterectomy; lg3 - Immunization history:: Adult Immunizations up to date, Client reports receiving the 2nd dose of the Covid vaccine, Flu vaccine is not up to date. - Infectious Disease History:: Denies. - Social history:: Smoking status: Patient reports the use of cigarette tobacco products, smokes one pack cigarettes per day. Patient uses alcohol, only on a social basis. street drugs, cocaine, marijuana. - Family history:: not pertinent. ROS: 04:40 Constitutional: Negative for fever, chills, and weight loss, positive right flank pain sp4 04:40 All other systems are negative, Exam: 04:40 Constitutional: This is a well developed, well nourished patient who is awake, alert, sp4 and in no acute distress. Head/Face: Normocephalic, atraumatic. Eyes: Pupils equal round and reactive to light, extra-ocular motions intact. Lids and lashes normal. Conjunctiva and sclera are not injected. Cornea within normal limits. Periorbital areas with no swelling, redness, or edema. ENT: Nares patent. No nasal discharge, no septal abnormalities noted. Tympanic membranes are normal and external auditory canals are clear. Oropharynx with no redness, swelling, or masses, exudates, or evidence of obstruction, uvula midline. Mucous membranes moist. Neck: Trachea midline, no thyromegaly or masses palpated, and no cervical lymphadenopathy. Supple, full range of motion without nuchal rigidity, or vertebral point tenderness. Chest/axilla: Normal chest wall appearance and motion. Nontender with no deformity. No lesions are appreciated. Cardiovascular: Regular rate and rhythm with a normal S1 and S2. No gallops, murmurs, or rubs. Normal PMI, no JVD. No pulse deficits. Respiratory: Lungs have equal breath sounds bilaterally, clear to auscultation and percussion. No rales, rhonchi or wheezes noted. No increased work of breathing, no retractions or nasal flaring. Abdomen/GI: Soft, with normal bowel sounds. No distension or tympany. No guarding or rebound. No evidence of tenderness throughout. Back: No spinal tenderness. No costovertebral tenderness. Skin: Warm, dry with normal turgor. Normal color with no rashes, no lesions, and no evidence of cellulitis. MS/ Extremity: Pulses equal, no cyanosis. Neurovascular intact. Full, normal range of motion. Neuro: Awake and alert, GCS 15, oriented to person, place, time, and situation. Cranial nerves II-XII grossly intact. Motor strength 5/5 in all extremities. Sensory grossly intact. Psych: Awake, alert, with orientation to person, place and time. Behavior, mood, and affect are within normal limits Vital Signs: 04:32 BP 148 / 88; Pulse 73; Resp 17 S; Temp 98.3(O); Pulse Ox 100% on R/A; Weight 95 kg (M); lg3 Height 5 ft. 7 in. (R); Pain 10/10; 05:30 BP 113 / 58; Pulse 72; Resp 17; Pulse Ox 97% ; vc1 06:22 BP 136 / 67; Pulse 74; Resp 17; Pulse Ox 100% ; jj7 07:10 BP 124 / 74; Pulse 72; Resp 14; Pulse Ox 100% ; ko1 04:32 Body Mass Index 32.80 (95.00 kg, 170.18 cm) lg3 04:32 Pain Scale: Adult lg3 [place] Coma Score: 04:40 Eye Response: spontaneous(4). Motor Response: obeys commands(6). Verbal Response: sp4 oriented(5). Total: 15. MDM: 04:40 Patient medically screened. sp4 04:41 Differential Diagnosis altered mental status, sepsis, flu. Data reviewed: vital signs, sp4 nurses notes, EMS record, old medical records, lab test result(s), radiologic studies, CT scan. 06:44 Consideration of Admission/Observation Escalation of care including sp4 admission/observation considered. Transition of care: After a detail discussion of the patient's case, care is transferred to Hardik Perea MD. 07:08 ED course: Patient signed out to me by. Physician, in brief patient arrives today due ec2 to concern for flank pain, plan is follow-up CT imaging. CT imaging shows no acute intra-abdominal process, will discharge home, have her follow-up primary care doctor. Return precautions given . 07:45 ED course: Urine with blood present, no marked evidence of urinary tract infection. ec2 Will discharge home, diagnosis of flank pain. Return precautions given. 02/17 04:35 Order name: CBC with Diff; Complete Time: 06:18 sp4 02/17 04:35 Order name: CMP; Complete Time: 06:18 sp4 02/17 04:35 Order name: Lipase; Complete Time: 06:18 sp4 02/17 04:35 Order name: Urinalysis w/ reflexes; Complete Time: 07:45 sp4 02/17 04:36 Order name: Urine Drug Screen; Complete Time: 07:45 sp4 02/17 04:36 Order name: CRP; Complete Time: 06:18 sp4 02/17 04:40 Order name: Alcohol Level; Complete Time: 06:18 sp4 02/17 04:35 Order name: CT Abd/Pelvis - IV Contrast Only; Complete Time: 07:08 sp4 02/17 04:35 Order name: IV Saline Lock; Complete Time: 04:49 sp4 02/17 04:35 Order name: Labs collected and sent; Complete Time: 04:49 sp4 Administered Medications: 05:07 Drug: NS 0.9% IV 1000 ml IV at 1 bolus Per protocol; 1000 mL bolus Route: IV; Rate: 1 jj7 bolus; Site: right antecubital; 07:55 Follow up: Response: No adverse reaction; IV Status: Completed infusion; IV Intake: ko1 1000ml 05:07 Drug: Famotidine IVP 20 mg IVP once; dilute with 10 mL 0.9% NaCl; give over 2 minutes jj7 Route: IVP; Site: right antecubital; 07:55 Follow up: Response: No adverse reaction ko1 05:07 Drug: TORadol - Ketorolac IVP 30 mg IVP once Route: IVP; Site: right antecubital; jj7 07:55 Follow up: Response: No adverse reaction ko1 05:07 Drug: Ondansetron IVP 4 mg IVP once; over 2 minutes Route: IVP; Site: right antecubital;jj7 07:55 Follow up: Response: No adverse reaction ko1 05:08 Drug: morphine IVP or IV 4 mg IVP once over 4 mins Route: IVP; Infused Over: 4 mins; jj7 Site: right antecubital; 07:56 Follow up: Response: No adverse reaction ko1 05:08 Drug: Haloperidol IVP 5 mg IVP once {Note: CLARIFIED WITH DR MONTELONGO MED CAN BE GIVEN jj7 IVP.} Route: IVP; Site: right antecubital; 07:54 Follow up: Response: No adverse reaction ko1 Disposition Summary: 02/18/24 07:46 Discharge Ordered Notes: Location: Home(02/18/24 07:46) ec2 Condition: Stable(02/18/24 07:46) ec2 Diagnosis - Flank Pain ec2 Followup: ec2 - With: Private Physician - When: - Reason: Re-evaluation by your physician Followup: ec2 - With: Eliceo Andujar MD - When: - Reason: Recheck today's complaints Discharge Instructions: - Discharge Summary Sheet ec2 - Flank Pain, Adult, [id number] ec2 Forms: - Medication Reconciliation Form ec2 - Thank You Letter ec2 - Antibiotic Education ec2 - Prescription Opioid Use ec2 - Patient Portal Instructions ec2 - Leadership Thank You Letter ec2 Signatures: Dispatcher [employer] Cynthia Shah RN RN lg3 Emir Javed RN RN jj7 Isrrael Bhakta MD MD sp4 Hardik Perea MD MD ec2 Tessa Dorsey RN ko1 Corrections: (The following items were deleted from the chart) 04:36 04:36 Abdomen Pelvis W Con+CT.RAD.BRZ ordered. EDMS EDMS 04:37 04:37 C-REACTIVE PROTEIN+C.LAB.BRZ ordered. EDMS EDMS 04:40 04:40 ETHANOL+C.LAB.BRZ ordered. EDMS EDMS 07:10 07:09 Home ec2 ec2 07:10 07:09 Stable ec2 ec2 07:10 07:09 Flank Pain ec2 ec2
[2024-02-18 07:39] LABS: Barbiturates NEGATIVE (NEGATIVE); Benzodiazepines NEGATIVE (NEGATIVE); Cocaine POSITIVE (NEGATIVE); METHAMPHETAM NEGATIVE (NEGATIVE); Methadone NEGATIVE (NEGATIVE); Opiates POSITIVE (NEGATIVE); Phencyclidine NEGATIVE (NEGATIVE); THC Cannibis NEGATIVE (NEGATIVE)
[2024-02-18 07:42] LABS: Specific Gravity > 1.030 (1.005-1.030); Sqamous Epithelial <5 /HPF (None Seen); Urine Bacteria None Seen /HPF (<20); Urine Bilirubin NEGATIVE (Negative); Urine Blood Negative (Negative); Urine Clarity Clear (Clear); Urine Color Light-Yellow (Yellow); Urine Culture Reflex Order NOT NEEDED; Urine Glucose NEGATIVE (Negative); Urine Ketones NEGATIVE (Negative); Urine Microscopic Reflex YN ORDER UMIC; Urine Mucus Slight /HPF (None Seen); Urine Nitrite NEGATIVE (Negative); Urine Protein NEGATIVE (Negative); Urine Urobilinogen Normal (Normal); Urine WBC <5 /HPF (<5); Urine pH 6.5 (5.0-7.0)
[2024-02-18 16:30] VITALS: BP 124/74; TEMP 98.3; O2SAT 100
== END 2024-02-18 07:54 | disposition home or self-care (01) ==
LOC: ER 04:26
DX: R10.9 Unspecified abdominal pain (principal); F17.210 Nicotine dependence, cigarettes, uncomplicated; Z88.5 Allergy status to narcotic agent; Z88.6 Allergy status to analgesic agent
CPT/HCPCS: 96361; 85025; 81001; 36415; 83690; 80053; 80307; 86140; 74177; 96375; 96374; 99285; 82077; Q9967; J1630; J2405; J7030

== ENCOUNTER 2024-02-23 16:54 | Emergency (ER) | payer OTHER ==
--- OUTSIDE RECORDS SUMMARY | 2024-02-23 16:58 | XMS REPORT | Continuity of Care Document ---
Author Name Unknown Address [address] [place] [address] [facility] thconnect Address [address] [place] [address] Care Team Providers Care Field Clinical Engineer Name Role Phone Aracelis Mark Attending Clinician Unavailable Sariah Cody Attending Clinician Unavailable Erica Zeng Attending Clinician Unavailable CHARLIE MCKEON Attending Clinician Unavailable THOEDORE GUTIERREZ Attending Clinician Unav ailable LAB90 Attending Clinician Unavailable NORRIS MELENDREZ Attending Clinician Unavail able MARI HERNANDEZ Attending Clinician Unavailable DARVIN Attending Clinician Unavailable Payers Payer Name Policy Type Policy Number Effective Date Expirati on Date Source [facility] [id number] 00:00:00 [facility] (MEDICARE REPLACEMENT HMO) [id number] 2022 00:00:00 Problems Condition Name Condition Details Condition Category Status Onset Date Resolution Date Last Treatment Date Treating Clinician Comments Source Right lower quadrant abdominal pain Right lower quadrant abdominal pain Disease Active 4-03 00:00: 00 Kathy massey Coronary vasospasm Coronary vasospasm Disease Active 1-02 00:00: 00 Kathy Thompsona bryson Prediabete s Prediabete s Disease Active 2022-11 0-31 00:00: 00 Kathy massey Well adult exam Well adult exam Disease Active 08-15 00:00: 00 Kathy De La Torre - Externa bryson History of uterine cancer History of uterine cancer Disease Active 08-15 00:00: 00 Kathy Thompsona l Chronic back pain Chronic back pain Disease Active 08-15 00:00: 00 Kathy De La Torre - Externa l GERD (gastroeso phageal reflux disease) GERD (gastroeso phageal reflux disease) Disease Active 08-15 00:00: 00 Kathy De La Torre - Externa l History of colon polyps History of colon polyps Disease Active 08-15 00:00: 00 Kathy De La Torre - Externa l Family history of colon cancer in father Family history of colon cancer in father Disease Active 08-15 00:00: 00 Kathy De La Torre - Externa l HTN (hypertens ion) HTN (hypertens ion) Disease Active 08-15 00:00: 00 Kathy La Externa bryson Tobacco use Tobacco use Disease Active 08-15 00:00: 00 Kathy De La Torre - Externa bryson CAD (coronary artery disease) CAD (coronary artery disease) Disease Active 08-15 00:00: 00 Overview: Formattin g of this note might be different from the original. 2006 Kathy Thompsona bryson History of [place] (myocardia l infarction ) History of [place] (myocardia l infarction ) Disease Active 11-18 00:00: 00 Kathy Thompsona bryson History of CVA (cerebrova scular accident) History of CVA (cerebrova scular accident) Disease Active 11-18 00:00: 00 Kathy La Externa bryson Edema Edema Problem Active [facility] Irritable bowel syndrome IBS (irritable bowel syndrome) Problem Active [facility] [id number] Polyarthra lgia Problem Active [facility] Cancer Cancer Problem Active [facility] Mixed anxiety and depressive disorder Depression with anxiety Problem Active [facility] [id number] Chronic pain syndrome Problem Active [facility] Heart disease Heart disease Problem Active [facility] [id number] Coronary artery disease involving coronary bypass graft of [place] heart with angina pectoris Problem Active [facility] [id number] Insomnia, unspecifie d type Problem Active [facility] [id number] Right leg weakness Problem Active [facility] [id number] Status post fall Problem Active [facility] Allergies, Adverse Reactions, Alerts Allergy Name Allergy Type Status Severity Reaction(s) Onset Date Inactive Date Treating Clinician Comments Source Ibuprofe n Propensi ty to adverse reaction s Active Swelling 07-18 00:00: 00 Kathy De La Torre - Jaya l Tramadol Propensi ty to adverse reaction s Active Other 07-18 00:00: 00 Kathy De La Torre - Externa l ibuprofe n ibuprofe n Active swelling with her breathing affected [facility] tramadol tramadol Active Unknown Commo n [facility] Social History Social Habit Start Date Stop Date Quantity Comments Source History of tobacco use Cigarette Smoker Kathy drake - External Sexual orientation Marilin robertson Britt - External Alcohol intake 2024-02-19 00:00:00 2024-02-19 00:00:00 Current drinker of alcohol (finding) Kathy [...] Kathy De La Torre - External Education - What is the highest level of school you have completed or the highest degree you have received? 2023-08-15 00:00:00 2023-08-15 00:00:00 High school graduate Kathy De La Torre - External Alcohol Comment 2023-08-15 00:00:00 2023-08-15 00:00:00 moderately Kathy Morocho Sex Ass[birth year] At 1955 00:00:00 1955 00:00:00 Kathy Morocho Smoking Status Start Date Stop Date Source Smokes tobacco daily 2023-08-15 00:00:00 Kathy Morocho Medications Ordered Medication Name Filled Medication Name Start Date Stop Date Current Medication? Ordering Clinician Indication Dosage Frequency Signature (SIG) Comments Components Source Cyanocobala min (VITAMIN B 12 OR) 02-18 14:39: 38 Yes Take by mouth. Kathy massey Aspirin 81 MG oral Tablet Delayed Response 02-18 14:39: 38 Yes 81mg Take 1 tablet (81 mg total) by mouth daily. Kathy massey MILK THISTLE OR 2022-11 10:22: 01 Yes Take by mouth. Kathy massey Aspirin 81 MG oral Tablet Delayed Response 2022-11 10:22: 01 Yes 81mg Take 1 tablet (81 mg total) by mouth daily. Kathy massey Atorvastati n Calcium (Lipitor) 10 MG oral Tablet 2022-11 00:00: 00 Yes [id number] 10mg Take 1 tablet (10 mg total) [...] (81 mg total) by mouth daily. Kathy Britt massey Trazodone HCl 100 MG oral Tablet 08-15 00:00: 00 Yes [id number] 100mg Take 1 tablet (100 mg total) by mouth nightly. Kathy Britt massey Metoprolol Succinate 25 MG oral TABLET SR 24 HR 08-15 00:00: 00 Yes [id number] 25mg Take 1 tablet (25 mg total) by mouth daily. Kathy Britt Hilario l Gabapentin 300 MG Gabapentin 300 MG 07-28 00:00: 00 No 1{capsu le} Gabapentin 300 MG Gabapentin 300 MG Gabapentin 300 MG 07-28 00:00: 00 No 1{capsu le} Gabapentin 300 MG Trazodone HCl Trazodone HCl Yes Ilsa Millender 1-2 tablets at bedtime as needed for sleep [facility] Metoprolol Succinate ER Metoprolol Succinate ER Yes Ilsa Millender 1 tablet [facility] Lyrica 150 MG Lyrica 150 MG No [...] No 1{capsu le} QD Omeprazole 20 mg BusPIRone HCl 7.5 MG BusPIRone HCl 7.5 MG No 1{table t} BusPIRone HCl 7.5 MG amitriptyli ne 25 mg amitriptyli ne 25 mg No amitriptyl ine 25 mg Lyrica 150 MG Lyrica 150 MG No 1{capsu le} TID Lyrica 150 MG Metoprolol Succinate ER 25 mg Metoprolol Succinate ER 25 mg No 1{table t} QD Metoprolol Succinate ER 25 mg Nexium 40 MG Nexium 40 MG No 1{capsu le} QD Nexium 40 MG Omeprazole 20 mg Omeprazole 20 mg No 1{capsu le} QD Omeprazole 20 mg Vital Signs Vital Name Observation Time Observation Value Comments S moy Systolic blood pressure 2024-02-19 19:37:00 145 mm[Hg] Kathy Seybo ld - External Diastolic blood pressure 2024-02-19 19:37:00 82 mm[Hg] Kathy Seybo ld - External Heart rate 2024-02-19 19:37:00 82 /min Kelse y Seybold - External Body temperature 2024-02-19 19:37:00 36.06 Robyn Kathy Seybold - External Respiratory rate 2024-02-19 19:37:00 15 /min Kathy Seybold - External Body height 2024-02-19 19:37:00 170.2 cm Melissa ey Seybold - External Body weight 2024-02-19 19:37:00 88.451 kg Melissa ey Seybold - External BMI 2024-02-19 19:37:00 30.54 kg/m2 Melissa ey Seybold - External Oxygen saturation in Arterial blood by Pulse oximetry 2024-02-19 19:37:00 97 /min Kathy Seybo ld - External Systolic blood pressure 2023-09-17 15:20:00 129 mm[Hg] Kathy Seybo ld - External Diastolic blood pressure 2023-09-17 15:20:00 67 mm[Hg] Kathy Seybo ld - External Heart rate 2023-09-17 15:20:00 89 /min Kelse y Seybold - External Body temperature 2023-09-17 15:20:00 36.56 Robyn Kathy Seybold - External Respiratory rate 2023-09-17 15:20:00 15 /min Kathy Seybold - External Body height 2023-09-17 15:20:00 170.2 cm Melissa ey Seybold - External Body weight 2023-09-17 15:20:00 81.375 kg Melissa ey Seybold - External BMI 2023-09-17 15:20:00 28.10 kg/m2 Melissa ey Seybold - External Oxygen saturation in Arterial blood by Pulse oximetry 2023-09-17 15:20:00 99 /min Kathy Seybo ld - External Systolic blood pressure 2023-08-15 14:56:00 131 mm[Hg] Kathy Ahmadi ld - External Diastolic blood pressure 2023-08-15 14:56:00 77 mm[Hg] Kathy Ahmadi ld - External Heart rate 2023-08-15 14:56:00 95 /min Kenyon De La Torre - External Body temperature 2023-08-15 14:56:00 37.06 Robyn Kathy De La Torre - External Respiratory rate 2023-08-15 14:56:00 20 /min Kathy De La Torre - External Body weight 2023-08-15 14:56:00 83.553 kg Melissa De La Torre - External Oxygen saturation in Arterial blood by Pulse oximetry 2023-08-15 14:56:00 99 /min Kathy Ahmadi ld - External Encounters Start Date/Time End Date/Time Encounter Type Admission Type Attending [facility] Care Department Encounter ID Source 2022-11-23 12:45:00 Outpatient JasReai STLC STLC [id number] [facility] 2022-11-06 16:26:00 Outpatient STLMLC STLMLC [id number] [facility] 2021-12-13 14:30:22 Outpatient STLMLC STLMLC [id number] [facility] 2021-12-13 14:06:26 Outpatient MarkAracelis lincoln STLMLC STLMLC [id number] [facility] 2021-12-13 14:06:22 Outpatient ModestoSariah xiao STLMLC STLMLC [id number] [facility] 2021-12-13 12:22:41 Outpatient Sariah Cody STLMLC STLMLC [id number] [facility] 2021-12-13 12:04:11 Outpatient Erica Zeng STLC STLC [id number] [facility] 2021-12-13 12:02:19 Outpatient Erica Zeng [facility] [id number] [facility] 2024-04-27 10:00:00 2024-04-27 10:00:00 Outpatient PREZAS, CHARLIE KATHY MEANS [id number] [facility] 2024-04-06 10:00:00 2024-04-06 10:00:00 [facility] [id number] [facility] 2024-02-19 14:45:00 2024-02-19 14:45:00 Outpatient PREZAS, CHARLIE KATHY MEANS [id number] [facility] 2024-02-19 10:00:00 2024-02-19 10:00:00 Outpatient PREZAS, CHARLIEMAUREEN MEANS [id number] Kathy [facility] 2024-02-12 00:00:00 2024-02-12 00:00:00 Outpatient PREZAS, CHARLIE MEANS [id number] Kathy [facility] 2023-12-18 10:45:00 2023-12-18 10:45:00 Outpatient PREZAS, CHARLIE KATHY MEANS [id number] [facility] 2023-11-19 09:40:00 2023-11-19 09:40:00 Outpatient MATTTHEODORE [id number] Kathy [facility] 2023-11-19 00:00:00 2023-11-19 00:00:00 Outpatient MATTTHEODORE [id number] Kathy [facility] 2023-10-15 00:00:00 2023-10-15 00:00:00 Outpatient PREZAS, CHARLIE MEANS [id number] [facility] 2023-09-17 10:00:00 2023-09-17 10:00:00 Outpatient PREZAS, CHARLIE MEANS [id number] Kathy [facility] 2023-09-13 00:00:00 2023-09-13 00:00:00 Outpatient PREZAS, CHARLIE MEANS [id number] [facility] 2023-09-11 10:30:00 2023-09-11 10:30:00 Outpatient PREZAS, CHARLIE MEANS KATHY [id number] [facility] 2023-09-03 00:00:00 2023-09-03 00:00:00 Outpatient PREZAS, CHARLIE MEANS KATHY [id number] Kathy [facility] 2023-09-03 00:00:00 2023-09-03 00:00:00 Outpatient PREZAS, CHARLIE MEANS KATHY [id number] [facility] 2023-09-02 08:00:00 2023-09-02 08:00:00 Outpatient JOSE R MEANS KATHY [id number] [facility] 2023-08-26 00:00:00 2023-08-26 00:00:00 Outpatient MELENDREZNORRIS KATHY MEANS [id number] Kathy [facility] 2023-08-25 00:00:00 2023-08-25 00:00:00 Outpatient PREZAS, CHARLIE [facility] MEANS [id number] [facility]23-08-22 00:00:00 2023-08-22 00:00:00 Outpatient TINMARI Gresham KATHY MEANS [id number] Kathy [facility] 2023-08-16 00:00:00 2023-08-16 00:00:00 Outpatient GINTYRON KATHY MEANS [id number] Kathy [facility] 2023-08-15 10:15:00 2023-08-15 10:15:00 Outpatient PREZAS, CHARLIE KATHY MEANS [id number] Kathy [facility] 2023-07-17 10:30:00 2023-07-17 10:30:00 Outpatient PREZAS, CHARLIE KATHY MEANS [id number] [facility] 2023-07-05 00:00:00 2023-07-05 00:00:00 Outpatient PREZAS, CHARLIE KATHY MEANS [id number] [facility] 2023-07-01 00:00:00 2023-07-01 00:00:00 Outpatient PREZAS, CHARLIE KATHY MEANS [id number] [facility] 2023-05-30 10:00:00 2023-05-30 10:00:00 Outpatient PREZAS, CHARLIE MEANS [id number] Kathy [facility] 2022-10-24 00:00:00 2022-10-24 00:00:00 [facility] [id number] [facility] 2020-12-06 00:00:00 2020-12-06 00:00:00 (TEL) STLMLC STLMLC [id number] [facility] 2020-08-30 00:00:00 2020-08-30 00:00:00 (TEL) STLMLC STLMLC [id number] [facility] 2020-02-03 08:59:00 2020-02-03 08:59:00 [facility] [id number] [facility] 2019-07-28 13:00:00 2019-07-28 13:00:00 [facility] [id number] [facility] 2019-06-16 16:59:00 2019-06-16 16:59:00 Out[facility] [id number] [facility] 2019-06-10 11:50:00 2019-06-10 11:50:00 Out[facility] [id number] [facility] 2018-05-09 09:00:00 2018-05-09 09:00:00 [facility] [id number] [facility]
[2024-02-23] MEDS ORDERED: ONDANSETRON 4 MG/2 ML VIAL ONE (18:09)
[2024-02-23] MEDS ORDERED: FAMOTIDINE 20 MG/2 ML VIAL IV ONE (18:09)
[2024-02-23] MEDS ORDERED: NA CHLORIDE 0.9% 1,000 ML ONE (18:09)
[2024-02-23] MEDS ORDERED: MORPHINE 4 MG/ML SYR ONE (18:09)
--- NOTE | 2024-02-23 18:26 | RAD REPORT ---
EXAM DESCRIPTION: RAD - Chest Single View - 02/23/2024 6:19 pm CLINICAL HISTORY: upper abdomen pain COMPARISON: <Comparisons> FINDINGS: Lines: None. Lungs: No evidence of edema or pneumonia. Pleural: No significant pleural effusions or pneumothorax. Cardiac: The heart size is within normal limits. Mediastinum: Within normal limits. Bones: No acute fractures. Other: None IMPRESSION: No acute cardiopulmonary disease.
--- NOTE | 2024-02-23 18:35 | RAD REPORT ---
EXAM DESCRIPTION: US - Abdomen Exam Limited - 02/23/2024 6:26 pm CLINICAL HISTORY: ABD PAIN COMPARISON: Abdomen Pelvis W Contrast dated 02/18/2024 FINDINGS: The gallbladder demonstrates no gallstones. No pericholecystic fluid. Borderline gallbladd er wall thickening though the gallbladder is contracted. The common bile duct is normal measuring 5 m m. The liver demonstrates no findings of intrahepatic biliary dilatation. IMPRESSION: Negative for cholelithiasis or acute cholecystitis. Contracted gallbladder. No biliary d uct dilatation.
[2024-02-23 18:45] LABS: Sqamous Epithelial <5 /HPF (None Seen); Urine Bacteria <20 /HPF (<20); Urine Microscopic Reflex YN ORDER UMIC; Urine Mucus Slight /HPF (None Seen); Urine RBC <5 /HPF (None Seen); Urine WBC <5 /HPF (<5)
[2024-02-23 18:46] LABS: Specific Gravity 1.021 (1.005-1.030); Urine Bilirubin NEGATIVE (Negative); Urine Blood Negative (Negative); Urine Clarity Clear (Clear); Urine Color Light-Yellow (Yellow); Urine Glucose NEGATIVE (Negative); Urine Ketones NEGATIVE (Negative); Urine Nitrite NEGATIVE (Negative); Urine Protein NEGATIVE (Negative); Urine Urobilinogen Normal (Normal); Urine pH 6.5 (5.0-7.0)
[2024-02-23 18:58] LABS: Absolute Basophils 0.1 K/uL (0-0.5); Absolute Eosinophils 0.2 K/uL (0-0.5); Absolute Lymphocytes (CBC) 2.7 K/uL (0.7-4.9); Absolute Monocytes 0.8 K/uL (0.1-1.3); Absolute Neutrophil 3.4 K/uL (1.8-8.0); Albumin 3.7 g/dL (3.4-5.0); Anion Gap 5.2 mEq/L (5.0-15.0); Basophils % 0.9 % (0-1.3); Bilirubin Total 0.5 mg/dL (0.2-1.0); Eosinophils % 2.6 % (0-4.4); Globulin 3.6 g/dL (2.3-3.5); Hemoglobin 13.8 g/dL (12.0-15.0); Lymphocytes % 37.9 % (15.3-44.8); MCH 29.8 pg (27.0-35.0); MCHC 32.9 g/dL (32.0-36.0); MCV 90.6 fL (80-100); MPV 10.6 fL (7.6-11.3); Monocytes % 11.8 % (3.3-12.3); Neutrophils % 46.8 % (41.7-73.7); Platelets 244 thou/uL (152-406); Potassium 3.2 mEq/L (3.5-5.1); Protein, Total 7.3 g/dL (6.4-8.2); RBC Red Blood Cell Count 4.64 M/uL (3.86-4.86); Red Cell Distribution Width 13.6 % (12.1-15.2)
--- NOTE | 2024-02-23 19:45 | RAD REPORT ---
EXAM DESCRIPTION: CTAbdomen Pelvis W Contrast - 02/23/2024 7:28 pm CLINICAL HISTORY: FLANK PAIN COMPARISON: Abdomen Pelvis W Contrast dated 02/18/2024; Abdomen Exam Limited dated 02/23/2024 TECHNIQUE: CT of the abdomen and pelvis was performed. All CT scans are performed using dose optimization technique as appropriate and may include automated exposure control or mA/KV adjustment according to patient size. FINDINGS: Lower chest: No acute abnormality. Liver: Low-density lesion the hepatic dome has benign imaging features. Biliary: No biliary ductal dilatation. Stomach: No significant focal abnormality. Duodenum: No significant focal abnormality. Pancreas: No significant abnormality. Spleen: No significant abnormality. Adrenal: No suspicious lesions. Kidney/ureter: No hydronephrosis. No renal calculi. Too small to characterize and/or benign appearing renal lesions are noted. No ureteral calculi. Retroperitoneum: No retroperitoneal adenopathy. Vascular: No aneurysm. Bowel: Moderate stool. Normal appendix. No bowel obstruction.. Peritoneum: Fat containing umbilical hernia. No free fluid. Bladder: Grossly unremarkable. Reproductive: Hysterectomy. Bones: No acute fracture. Right hip effusion. Degenerative changes are present at the right hip. Mult ilevel degenerative changes are present in the spine. Other: n/a IMPRESSION: No acute intra-abdominal or pelvic finding. No significant change compared with 02/18/20 24.
[2024-02-23] MEDS ORDERED: POTASSIUM 25 MEQ EFFERV TAB ONE (20:11)
[2024-02-23] MEDS ORDERED: MAGNES/ALUMIN/SIMET 30ML UCUP ONE (21:04)
[2024-02-23] MEDS ORDERED: HYDROMORPHONE HCL 1 MG/ML INJ ONE (21:04)
[2024-02-23] MEDS ORDERED: LIDOCAINE VISCOUS 2% 10ML ORAL SOLN ONE (21:05)
--- NOTE | 2024-02-23 21:35 | EDPHYS ---
Physician Documentation [facility] Name: Heath Lockwood Age: 68 yrs Sex: Female : 1955 Arrival Date: 02/23/2024 Time: 16:54 Bed 4 Private MD: Elmer Schrader ED Physician Kevin Khan HPI: 02/22 18:00 This 68 yrs old Black Female presents to ER via Wheelchair with complaints of Abdominal cp Pain. 18:00 The patient presents with abdominal pain in the upper abdomen. Onset: The cp symptoms/episode began/occurred 2 week(s) ago, intermittent. Associated signs and symptoms: Pertinent positives: nausea and vomiting, Pertinent negatives: chest pain, constipation, diarrhea, fever, headache, vomiting blood. The symptoms are described as intermittent. Severity of pain: in the emergency department the pain is unchanged despite home interventions. Historical: - Allergies: 17:41 Ibuprofen; nj1 17:41 Motrin; nj1 17:41 tramadol; nj1 - PMHx: 17:41 chronic back pain; CVA; irregular heartbeat; Myocardial infarction; ovarian cancer; nj1 uterine cancer; - PSHx: 17:41 Total abdominal hysterectomy; nj1 - Immunization history:: Client reports receiving the 2nd dose of the Covid vaccine. - Infectious Disease History:: Denies. - Social history:: Smoking status: Patient reports the use of cigarette tobacco products, smokes one pack cigarettes per day. ROS: 18:05 Constitutional: Negative for body aches, chills, fever, poor PO intake, cp 18:05 Eyes: Negative for injury, pain, redness, and discharge, cp 18:05 ENT: Negative for drainage from ear(s), ear pain, sore throat, difficulty swallowing, difficulty handling secretions, 18:05 Cardiovascular: Negative for chest pain, palpitations, 18:05 Respiratory: Negative for cough, shortness of breath, wheezing, 18:05 Abdomen/GI: Positive for abdominal pain, nausea and vomiting, Negative for diarrhea, constipation, hematemesis, 18:05 Neuro: Negative for altered mental status, dizziness, headache, syncope, weakness, 18:05 All other systems are negative, Exam: 18:10 Constitutional: The patient appears in no acute distress, alert, awake, non-toxic, well cp developed, well nourished, uncomfortable, 18:10 Head/Face: Normocephalic, atraumatic. cp 18:10 Eyes: Periorbital structures: appear normal, Conjunctiva: normal, no exudate, no injection, Sclera: no appreciated abnormality, Lids and lashes: appear normal, bilaterally, 18:10 ENT: External ear(s): are unremarkable, Nose: is normal, Mouth: Lips: moist, Oral mucosa: pink and intact, moist, Posterior pharynx: is normal, airway is patent, no erythema, no exudate, 18:10 Chest/axilla: Inspection: normal, 18:10 Cardiovascular: Rate: normal, Rhythm: regular, 18:10 Respiratory: the patient does not display signs of respiratory distress, Respirations: normal, no use of accessory muscles, no retractions, labored breathing, is not present, Breath sounds: are clear throughout, no decreased breath sounds, no stridor, no wheezing, 18:10 Abdomen/GI: Inspection: abdomen appears normal, Bowel sounds: active, all quadrants, Palpation: soft, in all quadrants, severe abdominal tenderness, in the epigastric area and right upper quadrant, involuntary guarding, is not appreciated, 18:10 Back: CVA tenderness, is absent, 18:10 Neuro: Orientation: to person, place \T\ time. Mentation: is normal, Vital Signs: 17:38 BP 128 / 93; Pulse 78; Resp 18; Temp 98.8(O); Pulse Ox 100% ; Weight 88.45 kg; Height 5 nj1 ft. 8 in. ; Pain 8/10; 20:00 BP 157 / 52; Pulse 79; Resp 18; Pulse Ox 100% ; vc1 21:30 Pulse 68; Resp 18; Pulse Ox 97% ; vc1 17:38 Body Mass Index 29.65 (88.45 kg, 172.72 cm) nj1 17:38 Pain Scale: Adult nj1 21:30 Patient refuses to keep blood pressure cuff on vc1 MDM: 17:44 Patient medically screened. arturo 21:33 Data reviewed: vital signs, nurses notes, lab test result(s), radiologic studies, CT cp scan, ultrasound. 21:33 I considered the following discharge prescriptions or medication management in the emergency department Medications were administered in the Emergency Department. See MAR. 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 Special discussion: Based on the patient's Hx, exam, and Dx evaluation, there is no indication for emergent surgery or inpatient Tx. It is understood by the patient/guardian that if the Sx's persist or worsen they need to return immediately for re-evaluation. 02/22 17:48 Order name: CBC with Diff; Complete Time: 19:01 cp 02/22 17:48 Order name: CMP; Complete Time: 19:01 cp 02/22 19:01 Interpretation: Normal except: K 3.2; GLUC 72; GFR 86; GLOB 3.6; A/G 1.0. cp 02/22 17:48 Order name: Lipase; Complete Time: 19:01 cp 02/22 17:48 Order name: Urinalysis w/ reflexes; Complete Time: 19:01 cp 02/22 17:48 Order name: XRAY Chest (1 view); Complete Time: 18:36 cp 02/22 18:36 Interpretation: Report review. cp 02/22 17:48 Order name: US Abdomen Limited: gallbladder; Complete Time: 18:36 cp 02/22 18:36 Interpretation: Report reviewed. cp 02/22 19:03 Order name: CT Abd/Pelvis - IV Contrast Only; Complete Time: 19:49 cp 02/22 17:48 Order name: IV Saline Lock; Complete Time: 18:03 cp 02/22 17:48 Order name: Labs collected and sent; Complete Time: 18:03 cp 02/22 17:48 Order name: NPO; Complete Time: 18:26 cp 02/22 19:53 Order name: PO challenge; Complete Time: 20:28 cp Administered Medications: 18:26 Drug: NS 0.9% IV 1000 ml IV at 1 bolus Per protocol; 1000 mL bolus Route: IV; Rate: 1 iw bolus; Site: right antecubital; 19:30 Follow up: IV Status: Completed infusion vc1 18:26 Drug: Famotidine IVP 20 mg IVP once; dilute with 10 mL 0.9% NaCl; give over 2 minutes iw Route: IVP; Site: right antecubital; 21:29 Follow up: Response: No adverse reaction; Marked relief of symptoms vc1 18:26 Drug: morphine IVP or IV 4 mg IVP once over 4 mins Route: IVP; Infused Over: 4 mins; iw Site: right antecubital; 19:00 Follow up: Response: No adverse reaction; Marked relief of symptoms; Pain is decreased vc1 18:27 Drug: Ondansetron IVP 4 mg IVP once; over 2 minutes Route: IVP; Site: right antecubital;iw 21:28 Follow up: Response: No adverse reaction; Marked relief of symptoms vc1 20:28 Drug: Potassium PO Effervescent Tablet 50 mEq PO once; dissolve in 4 ounces of water or vc1 juice Route: PO; 21:29 Follow up: Response: No adverse reaction vc1 20:47 CANCELLED (Physician Discretion): morphineor iv 4 mg IVP once over 4 mins cp 21:16 Drug: GI Cocktail without - (Maalox PO 30 ml, Lidocaine Mucous Membrane 2 % 15 vc1 ml) PO once Route: PO; 21:29 Follow up: Response: No adverse reaction vc1 21:16 Drug: HYDROmorphone IVP 1 mg IVP once Route: IVP; Site: right antecubital; vc1 21:49 Follow up: Response: No adverse reaction; Marked relief of symptoms; Pain is decreased vc1 Disposition Summary: 02/23/24 21:34 Discharge Ordered Notes: Location: Home cp Problem: new cp Symptoms: have improved cp Condition: Stable cp Diagnosis - Upper abdominal pain, unspecified cp Followup: cp - With: Malvin Streeter MD - When: 2 - 3 days - Reason: Recheck today's complaints Discharge Instructions: - Discharge Summary Sheet cp - Abdominal Pain, Adult cp Forms: - Medication Reconciliation Form cp - Thank You Letter cp - Antibiotic Education cp - Prescription Opioid Use cp - Patient Portal Instructions cp - Leadership Thank You Letter cp Prescriptions: - promethazine 25 mg Oral Tablet - take 1 tablet ORAL route every 6 hours As needed; 20 tablet; Refills: 0, cp Product Selection Permitted - dicyclomine 20 mg Oral tablet - take 1 tablet ORAL route 4 times per day; 30 tablet; Refills: 0, Product cp Selection Permitted Signatures: Dispatcher [employer] EDKevin Leija MD MD cha Williams, Irene RN RN iw Kevin Hernandez, PA PA cp Nedra Zhu RN RN vc1 Verenice Green RN RN nj1 Corrections: (The following items were deleted from the chart) 19:04 19:04 Abdomen Pelvis W [id number] ordered. EDMS EDMS 20:47 20:26 morphine IVP or IV 4 mg IVP once over 4 mins ordered. cp cp
--- NOTE | 2024-02-23 21:35 | ER ---
Nurse's Notes [facility] Name: Heath Lockwood Age: 68 yrs Sex: Female : 1955 Arrival Date: 02/23/2024 Time: 16:54 Bed 4 Private MD: Elmer Schrader Diagnosis: Upper abdominal pain, unspecified Presentation: 02/22 17:38 Chief complaint: Patient states: Abdominal pain on/off for 2 weeks. Seen here on nj1 Saturday, saw PCP , was feeling better until last night when they pain got bad. No nausea/vomiting/diarrhea. No fever. Coronavirus screen: Vaccine status: Patient reports receiving the 2nd dose of the covid vaccine. Ebola Screen: Patient denies travel to an Ebola-affected area in the 21 days before illness onset. Initial Sepsis Screen: Does the patient meet any 2 criteria? No. Patient's initial sepsis screen is negative. Does the patient have a suspected source of infection? No. Patient's initial sepsis screen is negative. Risk Assessment: Do you want to hurt yourself or someone else? Patient reports no desire to harm self or others. Onset of symptoms was January 2024. 17:38 Method Of Arrival: Wheelchair nj 17:38 Acuity: SHEILA 3 nj1 Historical: - Allergies: 17:41 Ibuprofen; nj1 17:41 Motrin; nj1 17:41 tramadol; nj1 - PMHx: 17:41 chronic back pain; CVA; irregular heartbeat; Myocardial infarction; ovarian cancer; nj1 uterine cancer; - PSHx: 17:41 Total abdominal hysterectomy; nj1 - Immunization history:: Client reports receiving the 2nd dose of the Covid vaccine. - Infectious Disease History:: Denies. - Social history:: Smoking status: Patient reports the use of cigarette tobacco products, smokes one pack cigarettes per day. Screenin:39 [facility] ED Fall Risk Assessment (Adult) Score/Fall Risk Level 0 - 2 = Low Risk. iw [facility] ED Fall Risk Assessment (Adult) History of falling in the last 3 months, including since admission No falls in past 3 months (0 pts) Confusion or Disorientation No (0 pts) Intoxicated or Sedated No (0 pts) Impaired Gait No (0 pts) Mobility Assist Device Used No (0 pt) Altered Elimination No (0 pt). Abuse screen: Denies threats or abuse. Denies injuries from another. Nutritional screening: No deficits noted. Tuberculosis screening: No symptoms or risk factors identified. Assessment: 18:00 General: Appears in no apparent distress. Behavior is calm, cooperative. Pain: iw Complains of pain in posterior aspect of right lateral abdomen, anterior aspect of right lateral abdomen and right upper quadrant Pain. Neuro: Level of Consciousness is awake, alert, obeys commands, Oriented to person, place, time, situation, Moves all extremities. Full function. Cardiovascular: Patient's skin is warm and dry. Respiratory: Respiratory effort is even, unlabored, Respiratory pattern is regular, symmetrical. GI: Bowel sounds present X 4 quads. Abd is soft X 4 quads Reports upper abdominal pain, nausea. Derm: Skin is intact, is healthy with good turgor. Musculoskeletal: Range of motion: intact in all extremities. 20:40 General: Appears in no apparent distress. Behavior is calm, cooperative, drowsy. Pain: vc1 Complains of pain in right upper quadrant and anterior aspect of right lateral abdomen and posterior aspect of right lateral abdomen Pain currently is 7 out of 10 on a pain scale. Neuro: Level of Consciousness is awake, alert, obeys commands, Oriented to person, place, time, situation, Moves all extremities. Cardiovascular: Patient's skin is warm and dry. Cardiovascular: Patient's skin is warm and dry. Respiratory: Airway is patent Respiratory effort is even, unlabored, Respiratory pattern is regular, symmetrical. GI: Bowel sounds present X 4 quads. Abd is soft Reports upper abdominal pain. Derm: No deficits noted. No signs and/or symptoms reported regarding the dermatologic system. Vital Signs: 17:38 BP 128 / 93; Pulse 78; Resp 18; Temp 98.8(O); Pulse Ox 100% ; Weight 88.45 kg; Height 5 nj1 ft. 8 in. ; Pain 8/10; 20:00 BP 157 / 52; Pulse 79; Resp 18; Pulse Ox 100% ; vc1 21:30 Pulse 68; Resp 18; Pulse Ox 97% ; vc1 17:38 Body Mass Index 29.65 (88.45 kg, 172.72 cm) nj1 17:38 Pain Scale: Adult nj1 21:30 Patient refuses to keep blood pressure cuff on vc1 ED Course: 16:56 Patient arrived in ED. rg4 16:56 Prezas, Elmer, DO is Private Physician. rg4 16:59 [facility] cp 16:59 Kevin Khan MD is Attending Physician. cp 17:41 Triage completed. nj1 17:43 Arm band placed on right wrist. nj1 17:50 Initial lab(s) drawn, by me, sent to lab. Inserted saline lock: 22 gauge in right iw antecubital area, using aseptic technique. Blood collected. 17:53 Genevieve Calderon, MONTSE is Primary Nurse. iw 18:21 XRAY Chest (1 view) In Process Unspecified. EDMS 18:28 US Abdomen Limited: gallbladder In Process Unspecified. EDMS 18:40 Patient has correct armband on for positive identification. Provided Education on: . iw 19:28 CT Abd/Pelvis - IV Contrast Only In Process Unspecified. EDMS 21:33 Malvin Streeter MD is Referral Physician. cp 21:44 No provider procedures requiring assistance completed. IV discontinued, intact, vc1 bleeding controlled, No redness/swelling at site. Pressure dressing applied. Administered Medications: 18:26 Drug: NS 0.9% IV 1000 ml IV at 1 bolus Per protocol; 1000 mL bolus Route: IV; Rate: 1 iw bolus; Site: right antecubital; 19:30 Follow up: IV Status: Completed infusion vc1 18:26 Drug: Famotidine IVP 20 mg IVP once; dilute with 10 mL 0.9% NaCl; give over 2 minutes iw Route: IVP; Site: right antecubital; 21:29 Follow up: Response: No adverse reaction; Marked relief of symptoms vc1 18:26 Drug: morphine IVP or IV 4 mg IVP once over 4 mins Route: IVP; Infused Over: 4 mins; iw Site: right antecubital; 19:00 Follow up: Response: No adverse reaction; Marked relief of symptoms; Pain is decreased vc1 18:27 Drug: Ondansetron IVP 4 mg IVP once; over 2 minutes Route: IVP; Site: right antecubital;iw 21:28 Follow up: Response: No adverse reaction; Marked relief of symptoms vc1 20:28 Drug: Potassium PO Effervescent Tablet 50 mEq PO once; dissolve in 4 ounces of water or vc1 juice Route: PO; 21:29 Follow up: Response: No adverse reaction vc1 20:47 CANCELLED (Physician Discretion): morphineor iv 4 mg IVP once over 4 mins cp 21:16 Drug: GI Cocktail without - (Maalox PO 30 ml, Lidocaine Mucous Membrane 2 % 15 vc1 ml) PO once Route: PO; 21:29 Follow up: Response: No adverse reaction vc1 21:16 Drug: HYDROmorphone IVP 1 mg IVP once Route: IVP; Site: right antecubital; vc1 21:49 Follow up: Response: No adverse reaction; Marked relief of symptoms; Pain is decreased vc1 Medication: 18:39 VIS not applicable for this client. iw Outcome: 21:34 Discharge ordered by MD. cp 21:44 Discharged to home via wheelchair, vc1 21:44 Condition: improved 21:44 Discharge instructions given to patient, friend, Instructed on discharge instructions, follow up and referral plans. medication usage, Demonstrated understanding of instructions, follow-up care, medications, Prescriptions given X 2, 21:47 Patient left the ED. vc1 Signatures: Dispatcher [employer] EDGenevieve Avila RN RN iw Kevin Hernandez, SHAHRZAD PA Carin Luong rg4 Nedra Zhu RN RN vc1 Verenice Green RN RN nj1
[2024-02-24 04:39] VITALS: BP 157/52; TEMP 98.8; O2SAT 97
== END 2024-02-23 21:47 | disposition home or self-care (01) ==
LOC: ER 16:54
DX: R10.10 Upper abdominal pain, unspecified (principal); F17.210 Nicotine dependence, cigarettes, uncomplicated; Z88.5 Allergy status to narcotic agent; Z88.6 Allergy status to analgesic agent
CPT/HCPCS: 96361; 85025; 81001; 36415; 83690; 80053; 74177; 71045; 76705; 96375; 96374; 99284; Q9967; J1170; J2405; J7030